=== PATIENT | female | born 1950 | race Caucasian/White ===

== ENCOUNTER 2017-09-02 16:40 | Emergency (ER) | payer OTHER ==
[~2017-09-02] VITALS: Ht 157.5 cm; Wt 72.6 kg
[~2017-09-02 16:40] MED LIST: BACTRIM DS TAB1 EACH PO; CO-Q-10 200 MG-1 SGL PO; HYDRODIURIL 112.5 M1 PO; JANUVIA 100MG100 MG PO; KEFLEX500 M1 PO; LOSARTAN POTAS100 MG PO; MASON NATURAL2000 IU PO; METFORMIN HCL500 MG PO; METOPROLOL SUC100 M1 PO; PROBIOTIC FORMU1 CA1 PO; VITAMIN C500 M3 PO
[2017-09-02 19:24] LABS: ABSOLUTE BASOPHIL COUNT 0 /CUMM (0.0-0.2); ABSOLUTE EOSINOPHIL COUNT 0.2 /CUMM (0.0-0.7); ABSOLUTE GRANULOCYTE CT 6.1 /CUMM (1.4-6.5); ABSOLUTE LYMPH COUNT 2.4 /CUMM (1.2-3.4); ABSOLUTE MONOCYTE COUNT 0.5 /CUMM (0.10-0.60); BASOPHIL % 0.5 % (0.0-2.0); EOSINOPHIL % 2.3 % (0-5); GRANULOCYTE % 65.9 % (42.2-75.2); HEMATOCRIT 40.1 % (37-47); MEAN CORPUSCULAR HGB 26.1 PG (27.0-31.0); MEAN CORPUSCULAR HGB CONC 32.4 G/DL (33.0-37.0); MEAN CORPUSCULAR VOLUME 80.7 FL (81.0-99.0); MEAN PLATELET VOLUME 9.8 FL (7.4-10.4); PLATELET COUNT 303 /CUMM (130-400); RED BLOOD CELL CT 4.96 /CUMM (4.20-5.40); WHITE BLOOD CELL COUNT 9.3 /CUMM (4.8-10.8)
--- NOTE | 2017-09-02 19:30 | ED GENERAL ADULT ---
History of Present Illness General Chief Complaint: General Adult Stated Complaint: SENT BY URGENT CARE FOR HIGH BLOOD PRESSURE Source: patient Exam Limitations: no limitations Vital Signs & Intake/Output Vital Signs & Intake/Output Vital Signs Date Time Temp Pulse Resp B/P B/P Pulse O2 O2 Flow FiO2 Mean Ox Delivery Rate 09/02 2100 98.7 64 18 172/84 96 Room Air 09/02 1936 Room Air 09/02 193 98.2 65 18 174/88 97 Room Air ED Intake and Output 09/03 0000 09/02 1200 Intake Total 0 Output Total Balance 0 Intake, Oral 0 Patient 160 lb Weight Weight Reported by Patient Measurement Method Allergies Coded Allergies: NO KNOWN ALLERGIES (09/17/11) Reconcile Medications Ascorbic Acid (Vitamin C) (Unknown Strength) TAB (Unknown Dose) PO DAILY SUPPLEMENT (Reported) Cephalexin (Keflex) 500 MG CAPSULE 1 CAP PO TID cellulitis CHOLECALCIFEROL (VITAMIN D3) (Vitamin D) (Unknown Strength) CAPSULE (Unknown Dose) PO DAILY SUPPLEMENT (Reported) Coenzyme Q10/Vitamin E (Co-Q-10 200 MG-1 Iu) 1 SGL SGL 2 SGL PO DAILY SUPPLEMENT (Reported) Hydrochlorothiazide (Hydrodiuril 12.5 MG Tab) 12.5 MG CAPSULE 1 CAP PO QAM BP (Reported) Inulin/Lactobacillus Sporoge (Probiotic Formula) 1 CAP CAP 1 CAP PO DAILY SUPPLEMENT (Reported) Losartan Potassium 100 MG TABLET 1 TAB PO QAM BP (Reported) Metformin Hydrochloride (Metformin HCl) 500 MG TAB 1 TAB PO BID DIABETES ( Reported) Metoprolol Succinate (Metoprolol Succinate XL) 100 MG TAB.ER.24H 1 TAB PO QAM BP (Reported) Sitagliptin Phosphate (Januvia) 100 MG TABLET 1 TAB PO DAILY DIABETES ( Reported) Sulfamethoxazole/Trimethoprim (Bactrim Ds Tablet) 800 MG-160 MG TABLET 1 TAB PO BID cellulitis Triage Note: PT TO ED C/O BLOOD SUGARS BEING UP AND DOWN LOW, ALSO CHECKED BP AT HOME WAS IN THE 190'S, PT WENT TO WALK IN CLINIC AND SENT TO ED FOR EVAL. BP IN TRIAGE 156/87 HEART RATE 74. PT STATING "FEELS BETTER NOW". ACCUCHECK: 140 Triage Nurses Notes Reviewed? yes Onset: Abrupt Duration: day(s): (1), better, gone now Timing: single episode today Injury Environment: home Severity: mild, moderate No Modifying Factors: none LMP (ages 10-50): unknown : No Patient currently breastfeeds: No HPI: 67 y/o female past medical history of hypertension, lipidemia, non-insulin- dependent diabetes since for evaluation of palpitations and elevated blood pressure. Patient states that she first noticed palpations early this morning ( >12 HOURS AGO) while she was at rest. She'll like her heart was beating rapidly and harder than usual. She has felt this in the past but never as strong. This lasted for several hours before resolving. Patient states that she took her blood pressure during this episode and noted that it was elevated to the 160s over 90s. She never had chest pain shortness of breath dizziness lightheadedness headache syncope lower extremity edema hemoptysis changes in vision or vomiting. She went to an urgent care and was referred here for further evaluation. She takes hydrochlorothiazide and metoprolol her blood pressure and is compliant. (John Gallo) Past History Travel History Traveled to [place] past 21 day No Medical History Any Pertinent Medical History? see below for history Neurological: NONE EENT: NONE Cardiovascular: hypertension, hyperlipidemia Respiratory: NONE Gastrointestinal: NONE Hepatic: NONE Renal: NONE Musculoskeletal: NONE Psychiatric: NONE Endocrine: diabetes Blood Disorders: NONE Cancer(s): NONE SOFTWARE DEVELOPMENT LEADER/Reproductive: NONE Surgical History Surgical History: N Psychosocial History What is your primary language Icelandic Tobacco Use: Never used ETOH Use: denies use Illicit Drug Use: denies illicit drug use Family History Hx Contributory? No (John Gallo) Review of Systems Review of Systems Constitutional: Reports: no symptoms. EENTM: Reports: no symptoms. Respiratory: Reports: no symptoms. Cardiovascular: Reports: see HPI, palpitations. GI: Reports: no symptoms. Genitourinary: Reports: no symptoms. Musculoskeletal: Reports: no symptoms. Skin: Reports: no symptoms. Neurological/Psychological: Reports: no symptoms. Hematologic/Endocrine: Reports: no symptoms. Immunologic/Allergic: Reports: no symptoms. All Other Systems: Reviewed and Negative (John Gallo) Physical Exam Physical Exam General Appearance: well developed/nourished, no apparent distress, alert, awake Head: atraumatic, normal appearance Eyes: Bilateral: normal appearance, PERRL, EOMI. Ears, Nose, Throat: hearing grossly normal Neck: normal inspection, supple, full range of motion Respiratory: normal breath sounds, chest non-tender, no respiratory distress, lungs clear Cardiovascular: regular rate/rhythm, normal peripheral pulses Peripheral Pulses: 2+ radial (R), 2+ radial (L) Gastrointestinal: soft, non-tender Back: normal inspection, normal range of motion Extremities: normal inspection, normal range of motion, no edema Neurologic/Psych: no motor/sensory deficits, awake, alert, oriented x 3, normal gait, normal mood/affect Skin: intact, normal color, warm/dry Lymphatic: no anterior cervical collette Core Measures ACS in differential dx? No CVA/TIA Diagnosis: No Sepsis Present: No Sepsis Focused Exam Completed? No (Brendon ROSE,John) Progress Differential Diagnoses I considered the following diagnoses in my evaluation of the patient: [ Hypertensive urgency, hypertensive emergency, arrhythmia, electrolyte abnormality, acute coronary syndrome, dehydration, anxiety, medication side effect] Plan of Care: Orders Procedure Date/time Status Add-on Test (ER Only) 09/02 1929 Active TSH REFLEX 09/03 1903 Complete MAGNESIUM 09/03 1903 Complete Patient seen and evaluated. She is here with palpitations and elevated blood pressure. No chest pain shortness of breath dizziness lightheadedness or syncope. Patient recently saw her pantry steward/stewardess Dr. alee negro in June of this year and had a normal stress test and echocardiogram. Her blood pressure at triage is 150s over 80s she's not tachycardic. Currently she feels much better. Her palpitations resolved before coming in. EKG labs chest x-ray ordered patient will be monitored on telemetry. Blood work does not show any acute findings. EKG appears very similar to previous the only difference being a flipped T-wave in aVF that was not present on previous EKG. Patient is asymptomatic. Her chest x-ray is clear. As patient never had chest pain shortness of breath and her symptoms resolved before presentation and occurred greater than 12 hours ago a repeat EKG troponin was not obtained. Reviewed results with patient. Repeat blood pressure is 170s over 80s. Patient will be discharged home with instructions to follow-up with her primary care doctor and pantry steward/stewardess. CAse discussed with Dr. Garcia. Dr. Garcia examined the patient and agrees with the plan. Diagnostic Imaging: Viewed by Me: Radiology Read. Discussed w/RAD: Radiology Read. CXR Impression: PATIENT: SABINA ANNE PRESENT AGE : 67 PATIENT ACCOUNT NO: [id number] : 51 LOCATION: [facility] ORDERING PHYSICIAN: John ROSE SERVICE DATE: 09/02/17 EXAM TYPE: RAD - XRY- CHEST XRAY, TWO VIEWS EXAMINATION: XR CHEST CLINICAL INFORMATION: Palpitations. Hypertensive urgency. COMPARISON: None TECHNIQUE: 2 views of the chest were obtained. FINDINGS: Lungs are clear. No pulmonary vascular congestion. There is no pleural effusion. The heart size is normal. The cardiac and mediastinal contours are normal. There are calcifications of the thoracic aorta. There are multilevel degenerative changes of dorsal spine. IMPRESSION: Unremarkable examination. DICTATED BY: Wilber Hensley MD DATE/TIME DICTATED:09/02/172029 SIGNALING PROJECT ENGINEER:ASHLI DATE/TIME TRANSCRIBED:09/02/172029 CONFIDENTIAL, DO NOT COPY WITHOUT APPROPRIATE AUTHORIZATION. Initial ED EKG: normal sinus rhythm, left axis deviation, left atrial hypertrophy, borderline T-wave abnormalities leads 3 aVF Prior EKG: changed (T-wave inversion in aVF new) (John Gallo) Differential Diagnoses I considered the following diagnoses in my evaluation of the patient: (Radha PHIPPS,Karl Jordan) Departure Departure Disposition: HOME OR SELF CARE Condition: Stable Clinical Impression Primary Impression: Palpitations Referrals: [place] PHIPPS,Peter Dahl (PCP/Family) Additional Instructions: CONTINUE TO TAKE ALL MEDS DIRECTED FOR FULL COURSE. MAKE A FOLLOW UP WITH YOUR PRIMARY CARE DOCOTR AND TRANSONIC ENGINEER SOON POSSIBLE. RETURN WITH ANY CONCERNS. Departure Forms: Customer Survey General Discharge Information (John Gallo) Psych Admission Note Psychiatric Admission: I have seen and evaluated SABINA ANNE. I have also reviewed all the pertinent lab results and diagnostic results. SABINA ANNE will be admitted to our inpatient Psychiatric unit for treatment and care. PA/CARPENTERS SUPERVISOR Co-Sign Statement Statement: ED Attending supervision documentation- [X] I saw and evaluated the patient. I have also reviewed all the pertinent lab results and diagnostic results. I agree with the findings and the plan of care as documented in the PA's/CARPENTERS SUPERVISOR's documentation. Patient presents for evaluation of heart palpitations and elevated blood pressure. Physical examination reveals regular heart tones and clear lungs. [] I have reviewed the ED Record and agree with the PA's/CARPENTERS SUPERVISOR's documentation. [] Additions or exceptions (if any) to the PAs/CARPENTERS SUPERVISOR's note and plan are summarized below: [] (Radha PHIPPS,Karl Jordan) Critical Care Note Critical Care Note Critical Care Time: non-applicable (Brendon ROSE,John)
--- NOTE | 2017-09-02 20:35 | RADIOLOGY REPORT ---
EXAMINATION: XR CHEST CLINICAL INFORMATION: Palpitations. Hypertensive urgency. COMPARISON: None TECHNIQUE: 2 views of the chest were obtained. FINDINGS: Lungs are clear. No pulmonary vascular congestion. There is no pleural effusion. The heart size is normal. The cardiac and mediastinal contours are normal. There are calcifications of the thoracic aorta. There are multilevel degenerative changes of dorsal spine. IMPRESSION: Unremarkable examination.
[2017-09-02 21:01] VITALS: BP 172/84
== END 2017-09-02 21:28 ==
LOC: ERH 16:40
PROVIDERS: Physician Assistant Medical
DX: R00.2 Palpitations (principal)
CPT/HCPCS: 71046; 93005; 93010